=== PATIENT | female | born 1940 | race Hispanic/Latino ===

== ENCOUNTER 2018-12-09 09:22 | Outpatient (CLI) | payer MEDICARE, OTHER | END 2018-12-09 09:23 | disposition home or self-care (01) | LOC: RAD 09:22 ==

== ENCOUNTER 2019-03-01 09:54 | Outpatient (CLI) | payer MEDICARE, OTHER | END 2019-03-01 09:55 | disposition home or self-care (01) | LOC: RAD 09:54 ==

== ENCOUNTER 2019-03-04 05:42 | Outpatient (CLI) | payer MEDICARE, OTHER | END 2019-03-04 05:43 | disposition home or self-care (01) | LOC: CARDIO 05:42 ==